=== PATIENT | female | born 1970 | race Caucasian/White ===

== ENCOUNTER 2018-06-25 12:34 | Emergency (ER) | payer BC, OTHER, SELFPAY ==
--- OUTSIDE RECORDS SUMMARY | 2018-06-25 12:35 | XMS REPORT ---
:1970 [facility] Address [address] [place] [address] Dr. Jones [address] [place] [id number] Care Team Providers Name Role Phone Unavailable Unavailable Unavailable Problems This patient has no known problems. Allergies, Adverse Reactions, Alerts This patient has no known allergies or adverse reactions. Medications This patient has no known medications.
[2018-06-25] MEDS ORDERED: HYDROCODONE/CHLORPHEN 5 ML/OSYR ONE (13:34)
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
--- NOTE | 2018-06-25 13:55 | RAD REPORT ---
EXAM DESCRIPTION: CT - Thorax Wo Con CLINICAL HISTORY: Chest pain PAIN COMPARISON: Chest For Pe Angio dated 01/08/2017 FINDINGS: The lungs are clear. No pleural thickening or pleural effusion. No pneumothorax. No axillary, mediastinal or hilar adenopathy. No concerning bony finding. No gross upper abdominal finding. All CT scans are performed using dose optimization technique as appropriate and may include automated exposure control or mA/KV adjustment according to patient size. IMPRESSION: No acute intrathoracic abnormality detected.
--- NOTE | 2018-06-25 14:14 | RAD REPORT ---
EXAM DESCRIPTION: RAD - Hand Left 3 View - 06/25/2018 2:08 pm CLINICAL HISTORY: PAIN COMPARISON: No comparisons FINDINGS: No acute fracture or dislocation seen.
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
[2018-06-25 14:59] VITALS: TEMP 97.8
[2018-06-25 15:01] VITALS: BP 132/62; O2SAT 100
== END 2018-06-25 14:49 | disposition home or self-care (01) ==
LOC: ER 12:34
DX: S13.4XXA Sprain of ligaments of cervical spine, initial encounter (principal); S20.219A Contusion of unspecified front wall of thorax, initial encounter; S60.222A Contusion of left hand, initial encounter; V47.5XXA Car driver injured in collision with fixed or stationary object in traffic accident, initial encounter; Z88.1 Allergy status to other antibiotic agents; Z88.5 Allergy status to narcotic agent; Z88.8 Allergy status to other drugs, medicaments and biological substances; Z91.040 Latex allergy status; Z91.048 Other nonmedicinal substance allergy status; I10 Essential (primary) hypertension; F41.9 Anxiety disorder, unspecified; J30.2 Other seasonal allergic rhinitis
CPT/HCPCS: 70450; 71250; 72125; 99284

== ENCOUNTER 2018-11-07 09:57 | Day surgery (SDC) | payer OTHER ==
--- NOTE | 2018-11-03 15:39 | EKG ---
Test Date: 2018-11-03 Test Time: 14:34:04 Application Packaging Specialist: DRISS MEASUREMENT RESULTS: Intervals: Rate: 73 VA: 196 QRSD: 90 QT: 390 QTc: 429 [place]: P: 56 VA: 196 QRS: 43 T: 29 INTERPRETIVE STATEMENTS: Normal sinus rhythm Septal infarct, age undetermined Abnormal ECG Compared to ECG 01/08/2017 09:03:11 Sinus tachycardia no longer present Myocardial infarct finding still present Electronically Signed On 11-03-18 15:39:24 CDT by Virgil Huang
--- OUTSIDE RECORDS SUMMARY | 2018-11-07 09:59 | XMS REPORT ---
:1970 [facility] Address [address] [place] [address] Dr. [address] [place] [id number] Care Team Providers Name Role Phone Unavailable Unavailable Unavailable Problems This patient has no known problems. Allergies, Adverse Reactions, Alerts This patient has no known allergies or adverse reactions. Medications This patient has no known medications.
[2018-11-07] MEDS: OXYMETAZOLINE HCL 0.05% 15ML NAS ONE ×5 (10:07→11:27)
[2018-11-07 10:09] LABS: Specific Gravity 1.025 (1.005-1.030)
[2018-11-07] MEDS ORDERED: Ringers Lactate 1,000 ML IV ONE (10:18)
[2018-11-07] MEDS ORDERED: PROPOFOL 200 MG/20 ML VIAL IV ONE (10:27)
[2018-11-07] MEDS ORDERED: GLYCOPYRROLATE 0.2 MG/ML SYR ONE (10:28)
[2018-11-07] MEDS ORDERED: ROCURONIUM 50 MG/5 ML VIAL IV ONE (10:28)
[2018-11-07] MEDS ORDERED: dexAMETHasone 10 MG/ML VIAL ONE (10:29)
[2018-11-07] MEDS ORDERED: FENTANYL CITR 250 MCG/5 ML ONE (10:30)
[2018-11-07] MEDS ORDERED: LIDOCAINE 2% MPF 5 ML VIAL ONE (10:30)
[2018-11-07] MEDS ORDERED: MIDAZOLAM HCL 2 MG/2 ML INJ ONE (10:31)
[2018-11-07] MEDS ORDERED: NEOSTIGMINE 1 MG/ML -10 ML VIAL ONE (10:31)
[2018-11-07] MEDS ORDERED: ONDANSETRON 4 MG/2 ML VIAL ONE (10:31)
[2018-11-07] MEDS ORDERED: OXYMETAZOLINE HCL 0.05% 15ML NAS ONE (10:35)
[2018-11-07] MEDS ORDERED: NA CHLORIDE 0.9% 500 ML ONE (10:35)
[2018-11-07] MEDS ORDERED: LIDOCAINE 1.5% W/EPI AMP 5 ML ONE (10:36)
--- NOTE | 2018-11-07 13:18 | P.BOP ---
Preoperative diagnosis: CRSwNP, L epiphora Postoperative diagnosis: same Primary procedure: B NE with max, ethmoid, frontal Secondary procedure: L DCR Manager Occupational: NONE,NONE Estimated blood loss: 100ml Specimen: sinus contents, culture Findings: gross purulence, severe polypoid edema Anesthesia: General Complications: None Implants: L mann tube, Propel stents x 6 Transferred to: Recovery Room Condition: Good
[2018-11-07] MEDS: HYDROMORPHONE HCL 2 MG/ML inj ONE ×2 (13:34→13:39)
[2018-11-07] MEDS ORDERED: ALBUTEROL INHALER 60 PUFF/8 GM IH ONE (13:41)
[2018-11-07] MEDS ORDERED: PROMETHAZINE 25 MG/ML VIAL ONE (14:04)
[2018-11-07 15:03] VITALS: BP 152/80; TEMP 98; O2SAT 99
--- NOTE | 2018-11-08 09:36 | OP ---
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 Procedures: Bilateral nasal endoscopy with maxillary antrostomy, total ethmoidectomy, frontal sinuso natalia, and left dacryocystorhinostomy with use of extradural CT navigation and left balloon dilation o f the sphenoid. Indication For Procedure: Ms. Roche presented with severe chronic rhinosinusitis with nasal polyposis and a history of 2 prior sinus surgeries with clinical suspicion for allergic fungal sinusitis. She was treated with maximum medical therapy including steroids and antibiotics. Her post treatment CT demonstrated persistent opacification of the sinuses including significant opacification of the ethmo ids and the frontal recess and mild to moderate mucoperiosteal thickening of the remaining sinuses. She was also noted to have maxillary plates and screws from remote facial trauma. The risks, benefit s, and alternatives to the procedure were discussed with the patient who agreed to proceed. The robert ent complained of left epiphora and requested addressing that issue at her preop visit. Description Of Procedure: The patient was brought to the operating room. She was placed under gener al anesthesia via oral endotracheal tube. The head of bed was turned 90 degrees. The nasal hairs we re trimmed and the nasal cavity was packed with Afrin-soaked pledgets. The [employer] headpiece was se cured to the patient's forehead and the post treatment CT scan was loaded to the system. Registratio n was performed using the laser pointer for surface matching and verification of accuracy was made by [id number] registration including the base of the columella, the tip of the nose, the glabella, and the bilateral medial and lateral canthi and accuracy was felt to be very good. The nasal pledget s were then removed and a 0 degree endoscope was used to perform a nasal endoscopy. Significant find ings included thick purulent debris and crusting in the bilateral maxillary sinuses. A moderate-size d anterior septal perforation without significant irritation or inflammation. Significant polyposis in the right ethmoid sinus region. The left middle turbinate appeared to have been partially resecte d. The inferior turbinates did not demonstrate significant or atrophic resection, though prior surge ry may have been performed as the middle turbinate, the inferior turbinates were relatively small. N o prior operative records are available for review. The 30 degree scope and curved suction was used to remove debris and the bilateral maxillary sinuses were forcefully irrigated. The maxillary antros tomies by enlarge were patent with no evidence of significant recirculation. A small amount of polyp oid tissue from around the maxillary antrostomies was made. The lining of the maxillary sinuses were significantly thickened and removal of a small amount of polypoid tissue was undertaken. However, I did not want to fully strip the sinus from its mucosa and overall attempt at postoperative control w ith topical medical and possible allergy therapy were felt to be a better option for this location. The 0 degree endoscope and straight navigation suction were then used to explore the left ethmoid cav ity. There were some residual ethmoid cells inferiorly which were carefully dissected using a curett e and opened with removal of bony partitions using a straight and 45 degree Blakesley. The navigatio n suction was used to help identify these bony partitions in order to identify the lamina. Moving mo re superiorly, there was residual partitions along the lamina which were carefully dissected with rem oval of bony fragments using the straight and 45 degree Blakesley with additional removal of fragment s using the 90 degree Blakesley. The 30 and 70 degree endoscopes were then used to visualize the mor e superior aspects of the ethmoid cavity. Polypoid tissue and bony partitions were carefully removed from along the anterior skull base. The Entellus balloon device was used to carefully probe and aid in identification of the frontal recess. The frontal recess was dilated and a 70 degree scope with large front to back and [id number] Giraffe was used to remove bony partitions. The lining of the f rontal sinus appeared moderately edematous. Small polyps were removed from the frontal recess taking care to avoid the mucosal invasion of this area in order to reduce risk of stenosis. The ethmoid ca vity was then packed with Afrin-soaked pledgets and attention was turned to the right side. The righ t ethmoid cavity was filled with polyps and there was significant polypoid degeneration noted on the medial and inferior aspect of the middle turbinate. These polyps were removed using the microdebride r taking care to avoid the lamina and taking care to avoid the bony portion of the middle turbinate. The inferior polypoid aspect of the middle turbinate was removed. Careful dissection through the et hmoid cavity was taken. Bony partitions within the anterior superior aspect of the sinus were remove d with care. The 30 and 70 degree scopes were used to visualize this area. There was a what appeare d to be an opening into the frontal recess, but on probing with the curved navigation suction, this a ppeared to be a small supraorbital cell rather than the true frontal recess. The Entellus balloon de vice was again used to probe just posterior to this area and the true frontal recess was identified. After dilation and irrigation of the frontal recess, polypoid tissue was removed using the Giraffe f orceps in order to better define the true frontal recess and frontal sinus. The mucosa again was not ed to be significantly edematous. This area was packed with Afrin-soaked pledgets and attention was returned to the left side. The Entellus balloon device was then configured for use in the sphenoid a nd the sphenoid os was identified, dilated, and thoroughly irrigated. There was no significant purul ence or fungal debris noted. Following irrigation of the sphenoid and additional formal opening of t he sphenoid was deferred. Finally, attention was turned to patient's complaint of left epiphora. Th e pre-treatment CT scan indicated prior violation of the bony lacrimal duct on the left side with a 0 degree endoscope. This lacrimal region was identified and with careful palpation of the left globe, the mucosa was seen to move suggestive of nasolacrimal obstruction. A Lugo tube was used to pro be the upper and lower canaliculi and passed through the lacrimal sac and toward the lacrimal duct. A 90 degree Blakesley was used to remove the mucosa intranasally allowing passage of the probes into the nose. These were retrieved and the Lugo tube was tied and secured within the nasal cavity. With placement of the Lugo tube, significant amount of thick mucoid fluid was suctioned from the created opening. All pledgets were removed and the nasal cavity was carefully suctioned. Decision d ue to the overall degree of inflammation and polypoid edema was made to place steroid eluting stents. A Propel mini stent was placed deeply within the right and left maxillary sinus. A Propel Contour was placed within the bilateral frontal recess and a standard steroid eluting stent was placed within the bilateral ethmoid cavities. The patient was then returned to care of Anesthesia for awakening a nd extubation in the operating room, which proceeded without difficulty. The patient will start sali ne irrigations and follow up with Dr. Alberto in approximately 10 days for postoperative reassessment . Strong consideration is made for repeat allergy evaluation due to the overall degree of polyposis and history of multiple environmenta l allergies. SAMEER/EDISON Voice ID: [id number] Report ID: [id number]
== END 2018-11-07 15:12 | disposition home or self-care (01) ==
LOC: OR 09:57
PROVIDERS: ATTEND Otolaryngology
PROC: 09BV8ZZ Excision of Left Ethmoid Sinus, Via Natural or Artificial Opening Endoscopic (ICD-10-PCS; 2018-11-07)
PROC: 09BQ8ZZ Excision of Right Maxillary Sinus, Via Natural or Artificial Opening Endoscopic (ICD-10-PCS; 2018-11-07)
PROC: 09BR8ZZ Excision of Left Maxillary Sinus, Via Natural or Artificial Opening Endoscopic (ICD-10-PCS; 2018-11-07)
PROC: 09BS8ZZ Excision of Right Frontal Sinus, Via Natural or Artificial Opening Endoscopic (ICD-10-PCS; 2018-11-07)
PROC: 09BT8ZZ Excision of Left Frontal Sinus, Via Natural or Artificial Opening Endoscopic (ICD-10-PCS; 2018-11-07)
PROC: 09BU8ZZ Excision of Right Ethmoid Sinus, Via Natural or Artificial Opening Endoscopic (ICD-10-PCS; 2018-11-07)
PROC: 099X8ZZ Drainage of Left Sphenoid Sinus, Via Natural or Artificial Opening Endoscopic (ICD-10-PCS; 2018-11-07)
PROC: 8E09XBG Computer Assisted Procedure of Head and Neck Region, With Computerized Tomography (ICD-10-PCS; 2018-11-07)
PROC: 081Y3J3 Bypass Left Lacrimal Duct to Nasal Cavity with Synthetic Substitute, Percutaneous Approach (ICD-10-PCS; 2018-11-07)
PROC: 8E09XBZ Computer Assisted Procedure of Head and Neck Region (ICD-10-PCS; principal; 2018-11-07 11:00)
DX: J32.2 Chronic ethmoidal sinusitis (principal); J32.0 Chronic maxillary sinusitis; J32.1 Chronic frontal sinusitis; J32.3 Chronic sphenoidal sinusitis; J33.9 Nasal polyp, unspecified; H04.202 Unspecified epiphora, left side; J34.89 Other specified disorders of nose and nasal sinuses; J45.909 Unspecified asthma, uncomplicated; E66.01 Morbid (severe) obesity due to excess calories; Z68.41 Body mass index [BMI] 40.0-44.9, adult; Z79.899 Other long term (current) drug therapy
CPT/HCPCS: 81025; 87070; 87075; 87077; 87186; 87205; 88304; 88311; 93005; J1100; J1170; J2001; J2250; J2405; J2550; J2704; J2710; J3010